=== PATIENT | female | born 1960 | race Caucasian/White ===

== ENCOUNTER 2023-01-07 00:39 | Day surgery (SDC) | payer BC, SELFPAY ==
[2023-01-03 12:40] VITALS: BMI 24.8
--- NOTE | 2023-01-06 13:18 | PM.HPGS ---
History of Present Illness History of Present Illness Consent: Risks, benefits, and alternatives have been discussed and questions answered. Patient agrees to proceed with procedure. Chief complaint: hx colon polyps Narrative: Jessica Lopez is a 62 year old female Referred for colon cancer screening. Her mother had colon cancer. She had a polyp removed about 6 years ago. Review of Systems Review of Systems: All systems reviewed & are unremarkable except as noted in HPI and below PMFSH Past Medical History Medical History Benign essential HTN CAD (coronary artery disease) Emphysema lung Hyperlipidemia MDD (major depressive disorder), recurrent episode, moderate MVP (mitral valve prolapse) Overactive bladder SCC (squamous cell carcinoma) L knee with excision Tobacco abuse Surgical History Surgical History H/O colonoscopy with polypectomy 2011, repeat 5 years, not done History of bronchoscopy Family History Family History Father Alcohol abuse Mother Colon cancer Depression Sibling Alcohol abuse Asthma Diabetes mellitus Depression Social History Social History Social History: Smoking packs per day: 1 Smoking cigarettes per day: 20.0 Years smoked: 50 Smoking pack-years: 50.00 Smoking status: Current every day smoker Tobacco type: cigarettes Second hand tobacco smoke exposure: No Alcohol intake: current Substance use: former Substance use type: prescription drug Lack of Transportation: No Lack of Food: Never True Current Housing: I Have Housing Concerned About Future Housing: No Difficulty Paying Gas/Electric Bills: No Difficulty Paying for Meds: No Currently Unemployed: No Education: Decline to Answer Difficulty w/ Childcare or Family Care: No Living arrangements: with family Occupation/Education: occupation Gender identity (if verbalized by the patient): Female Sexual Orientation (if Verbalized by the Patient): Straight or Heterosexual Spiritual care concerns: No Meds Home Medications and Allergies Home Medications Medication Instructions Recorded Confirmed Type atorvastatin 80 mg tablet 80 mg PO DAILY 05/28/22 01/03/23 History bupropion HCl 150 mg 24 hr tablet, 150 mg PO QAM 05/28/22 01/03/23 History extended release ramipril 2.5 mg capsule 2.5 mg PO DAILY 05/28/22 01/03/23 History sertraline 100 mg tablet 200 mg PO DAILY 05/28/22 01/03/23 History aspirin 81 mg tablet,delayed 81 mg PO DAILY 08/27/22 01/03/23 History release buspirone 15 mg tablet 30 mg PO BID 08/27/22 01/03/23 History albuterol sulfate 90 mcg/actuation 1 inh inhalation Q4H PRN shortness 12/07/22 01/03/23 Rx aerosol inhaler of breath or wheezing #6.7 grams cyanocobalamin (vitamin B-12) 1,000 mcg PO DAILY 01/03/23 01/03/23 History 1,000 mcg tablet Allergies Allergy/AdvReac Type Severity Reaction Status Date / Time alprazolam [From Xanax] Allergy Severe Other Verified 01/07/23 07:37 cefepime Allergy Severe Rash Verified 01/07/23 07:37 Exam Resp: Auscultation: clear to auscultation bilaterally Cardio: Rate: regular rate Rhythm: regular rhythm GI: GI Palp: Yes Soft to palpation and No Tenderness to palpation present (GI) Assessment and Plan Assessment and plan (1) Colon cancer screening: Code(s): Z12.11 - Encounter for screening for malignant neoplasm of colon Status: Acute Assessment and Plan: Colonoscopy with possible biopsy or polypectomy or cautery or injection of substances.
[2023-01-07 07:38] VITALS: BP 121/72; PULSE 78; RESP 18; TEMP 36.5; O2SAT 99
[2023-01-07] MEDS: LACTATED RINGERS 1,000 ML 150 ML IV CONT (07:52)
--- NOTE | 2023-01-07 08:22 | WPDANESEPPF ---
Anes - Initial Pre Proc Eval Procedure: Operation Date: 01/07/23 08:30 Proposed Procedures p Colonoscopy - Steve Coon MD Date/Time: 01/07/23 08:22 Surgeon: Steve Coon MD Pre Op Diagnosis: hx colon polyps Patient Data Age: 62 Gender: F Height: 1.71 m Weight: 69.5 kg Last Vital Signs Temp 97.7 F 01/07/23 07:38 Pulse 78 01/07/23 07:38 Resp 18 01/07/23 07:38 BP 121/72 01/07/23 07:38 Pulse Ox 99 01/07/23 07:38 O2 Del Method Room Air 01/07/23 07:38 Allergies Allergy/AdvReac Type Severity Reaction Status Date / Time alprazolam [From Xanax] Allergy Severe Other Verified 01/07/23 07:37 cefepime Allergy Severe Rash Verified 01/07/23 07:37 Home Medications Medication Instructions Recorded Confirmed Type atorvastatin 80 mg tablet 80 mg PO DAILY 05/28/22 01/03/23 History bupropion HCl 150 mg 24 hr tablet, 150 mg PO QAM 05/28/22 01/03/23 History extended release ramipril 2.5 mg capsule 2.5 mg PO DAILY 05/28/22 01/03/23 History sertraline 100 mg tablet 200 mg PO DAILY 05/28/22 01/03/23 History aspirin 81 mg tablet,delayed 81 mg PO DAILY 08/27/22 01/03/23 History release buspirone 15 mg tablet 30 mg PO BID 08/27/22 01/03/23 History albuterol sulfate 90 mcg/actuation 1 inh inhalation Q4H PRN shortness 12/07/22 01/03/23 Rx aerosol inhaler of breath or wheezing #6.7 grams cyanocobalamin (vitamin B-12) 1,000 mcg PO DAILY 01/03/23 01/03/23 History 1,000 mcg tablet Patient hx anesthesia problems: none Family hx anesthesia problems: none Results Review: All pre-operative results and documents have been reviewed as part of the pre-operative evaluation. [facility] Past Medical History Medical History Benign essential HTN CAD (coronary artery disease) Emphysema lung Hyperlipidemia MDD (major depressive disorder), recurrent episode, moderate MVP (mitral valve prolapse) Overactive bladder SCC (squamous cell carcinoma) L knee with excision Tobacco abuse Surgical History Surgical History H/O colonoscopy with polypectomy 2011, repeat 5 years, not done History of bronchoscopy Family History Family History Father Alcohol abuse Mother Colon cancer Depression Sibling Alcohol abuse Asthma Diabetes mellitus Depression Social History Social History Social History: Smoking packs per day: 1 Smoking cigarettes per day: 20.0 Years smoked: 50 Smoking pack-years: 50.00 Smoking status: Current every day smoker Tobacco type: cigarettes Second hand tobacco smoke exposure: No Alcohol intake: current Substance use: former Substance use type: prescription drug Lack of Transportation: No Lack of Food: Never True Current Housing: I Have Housing Concerned About Future Housing: No Difficulty Paying Gas/Electric Bills: No Difficulty Paying for Meds: No Currently Unemployed: No Education: Decline to Answer Difficulty w/ Childcare or Family Care: No Living arrangements: with family Occupation/Education: occupation Gender identity (if verbalized by the patient): Female Sexual Orientation (if Verbalized by the Patient): Straight or Heterosexual Spiritual care concerns: No Anes - Eval Final PreProcedure Day of Procedure 01/07/23 08:22 Patient weight: normal Heart: regular rate and rhythm Lungs: clear to auscultation Airway: Mallampati scale class II Neurological: alert and oriented Last oral intake: >/= 8 hours ASA classification: III Emergent: no Anesthetic plan: proceed Anesthesia type and monitoring: general GIVS and standard monitoring Results Review: All pre-operative results and documents have been reviewed as part of the pre-operative evaluation. Informed Consent: The patient's anesthet
[2023-01-07] MEDS: SIMETHICONE ORAL SUSPENSION 20 MG/0.3 ML 30 ML BOTTLE 0.6 ML IRRIGATION (08:53)
[2023-01-07 09:01] VITALS: BP 82/45; PULSE 62; RESP 19; O2SAT 98
[2023-01-07 09:11] VITALS: BP 78/42; PULSE 66; RESP 18; O2SAT 98
[2023-01-07 09:21] VITALS: BP 113/60; PULSE 56; RESP 17; O2SAT 98
== END 2023-01-07 09:30 | disposition home or self-care (01) ==
PROVIDERS: PCP Family Medicine; Visit Provider Internal Medicine Gastroenterology
PROC: 0DJD8ZZ Inspection of Lower Intestinal Tract, Via Natural or Artificial Opening Endoscopic (ICD-10-PCS; CPT 45378; principal; 2023-01-07 08:30)
DX: Z12.11 Encounter for screening for malignant neoplasm of colon (principal); D12.5 Benign neoplasm of sigmoid colon; K63.5 Polyp of colon; K62.1 Rectal polyp; Z80.0 Family history of malignant neoplasm of digestive organs; I10 Essential (primary) hypertension; I25.10 Atherosclerotic heart disease of native coronary artery without angina pectoris; E78.5 Hyperlipidemia, unspecified; F33.1 Major depressive disorder, recurrent, moderate; I34.1 Nonrheumatic mitral (valve) prolapse; Z79.82 Long term (current) use of aspirin; Z79.51 Long term (current) use of inhaled steroids; F17.210 Nicotine dependence, cigarettes, uncomplicated
CPT/HCPCS: 45380; 88305; J2704; J7120

== ENCOUNTER 2023-10-12 15:10 | Outpatient (CLI) | payer BC, SELFPAY ==
--- NOTE | ~2023-10-12 | MR_ITS ---
EXAMINATION: MR brain/brain stem wo con DATE: 10/12/2023 16:17 INDICATION: R41.89 - Other symptoms and signs involving cognitive fun... TECHNIQUE: Magnetic resonance imaging (MRI) of the brain and brainstem was performed without intraven ous contrast. Sequences included sagittal and axial T1-weighted SE, axial diffusion-weighted FS EPI A SSET, axial T2*-weighted GRE, axial T2-weighted FLAIR Propeller, and axial T2-weighted Propeller. Ihsan arent diffusion coefficient (ADC) maps were created. COMPARISON: None. FINDINGS: No abnormal restricted diffusion to suggest acute ischemic infarct. No MRI evidence of hemorrhage or extra-axial collection. No suspicious foci of susceptibility to suggest prior intraparenchymal hemorr juana. Scattered foci of white matter hyperintensity, likely representing mild small vessel ischemic d isease. Mild generalized parenchymal volume loss. The basilar cisterns are patent. Flow voids are pre served. Ethmoid mucosal thickening. Right mastoid fluid. The remaining aerated spaces are clear. Glob es and orbital contents are within normal limits. IMPRESSION: Mild atrophy and chronic white matter change. Otherwise unremarkable MR brain findings. Reviewed, dictated and finalized at location K. IMPRESSION: Mild atrophy and chronic white matter change. Otherwise unremarkable MR brain f indings.
== END 2023-10-12 15:11 ==
LOC: GOSHIMG 15:11
PROVIDERS: PCP Nurse Practitioner Adult Health; Visit Provider Nurse Practitioner Adult Health
DX: R41.89 Other symptoms and signs involving cognitive functions and awareness (principal)
CPT/HCPCS: 70551

== ENCOUNTER 2024-02-29 15:45 | Outpatient (CLI) | payer BC, SELFPAY ==
--- NOTE | ~2024-02-29 | CT_ITS ---
EXAMINATION:CT lung screening DATE: 02/29/2024 16:02 INDICATION: Personal history of nicotine dependence. Current smoker with 40 pack year history. TECHNIQUE: Computed tomography (CT) of the chest was performed without intravenous contrast. Automate d exposure control and iterative reconstruction technique were employed. The dose-length product (DLP ) was 56.72 mGy-cm. COMPARISON: Chest CT 08/27/2014 FINDINGS: There is mild scarring at the lung apices. There is mild emphysema. There is mild atelectas is bilaterally. A calcified right lung nodule and calcified right hilar lymph nodes are consistent wi th old granulomatous disease. No pleural effusion. The heart size is normal. There are coronary arter y calcifications. No pericardial effusion. Calcifications in the spleen are consistent with old granu lomatous disease. There is moderate thoracic spondylosis. IMPRESSION: 1. Lung-RADS category 2: Benign appearance or behavior. Continue annual screening with noncontrast lo w-dose chest CT in 12 months. Reviewed, dictated and finalized at location A. IT DRESSER IMPRESSION: 1. Lung-RADS category 2: Benign appearance or behavior. Continue annual screeni ng with noncontrast low-dose chest CT in 12 months.
== END 2024-02-29 15:46 | disposition home or self-care (01) ==
LOC: MICIMG 15:46
PROVIDERS: PCP Nurse Practitioner Adult Health; Visit Provider Nurse Practitioner Adult Health
DX: Z12.2 Encounter for screening for malignant neoplasm of respiratory organs (principal); Z87.891 Personal history of nicotine dependence
CPT/HCPCS: 71271

== ENCOUNTER 2024-11-29 12:17 | Outpatient (CLI) | payer OTHER, SELFPAY ==
--- NOTE | ~2024-11-29 | MM_ITS ---
EXAMINATION: MM screening rafaela BI w poncho HISTORY: Screening TECHNIQUE: Craniocaudal and mediolateral oblique 3-D tomosynthesis images were obtained and synthetic 2-D images were generated. CAD analysis was submitted and interpreted. COMPARISON: None provided BREAST PARENCHYMAL COMPOSITION: There are scattered areas of fibroglandular density. FINDINGS: There is no evidence of suspicious mass, calcification, or architectural distortion to suggest malignancy in either breast. IMPRESSION: 1. No mammographic evidence of malignancy. 2. Recommend routine screening mammography in one year. BI-RADS Category 1: Negative Reviewed, dictated and finalized at location B.
--- OUTSIDE RECORDS SUMMARY | 2024-11-29 05:15 | XMS_ITS ---
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 Orally Once a day lamoTRIgine 25 MG Tablet 1 tablet Orally once a day Medication List reviewed and reconciled with the patientTaking Vitamin B 12 100 MCG Lozenge as directed Orally Taking Ramipril 2.5 MG Capsule 1 capsule Orally Once a day Taking Aspirin 81 81 MG Tablet Delayed Release 1 tablet Orally Once a day Taking Atorvastatin Calcium 80 MG Tablet 1 tablet Orally Once a day Taking Metoprolol Succinate ER 25 MG Tablet Extended Release 24 Hour TAKE 1 TABLET BY MOUTH ONCE DAILY Oral Taking Ubrelvy 100 MG Tablet Oral Taking Sertraline HCl 100 MG Tablet 2 tablet Orally Once a day Taking busPIRone HCl 30 MG Tablet 1 tablet once a day for 7 days, 0.5 tablet once a day for 7 days Orally , stop date 02/12/2025Taking traZODone HCl 100 MG Tablet 0.5 to 1 tablet at bedtime Orally Once a day As neededTaking Rexulti 1 mg Tablet 1 tablet Orally Once a day Taking lamoTRIgine 25 MG Tablet 1 tablet Orally once a day Medication List reviewed and reconciled with the patient * Allergies: C efdiniryesAllergies Verified. Objective: * Vitals: B P:109/65mm Hg, HR:55/min, Wt:163lbs, Wt-k.94 kg, Ht: 67.99 in, Ht-cm: 172.69 cm, BMI:24.79Index, Body Surface Area: 1.88. * Examination: P sychiatry: Appearance: w ell-groomed, well-nourished,. Affect / mood: a ppropriate, full range. Attention: g ood. Attitude: c ooperative. Suicidal ideation: n one. Memory status: n o impairment noted. Degree of awareness of surroundings: w ithin normal limits.? Delusions: n o. Hallucinations: n o. Insight: g ood. Intellectual functioning: n o impairment noted. Judgement: g ood. Orientation: a wake, alert and oriented x 3. Perceptual disorders: n o perceptual disorder noted. Psychomotor activity: w ithin normal range. Speech / language: a ppropriate pitch/modulation, clear and coherent, normal rate, volume, and articulation (RVR), proper grammar used. Thought content: a ppropriate. Thought process: i ntact. G eneral Examination: M ental Status Examination The patient presented with a clear and coherent thought process, demonstrating the ability to engage in goal-directed conversation about complex topics such as medication changes, insurance issues, and future work plans. Their speech was normal in rate and volume, allowing for effective communication throughout the session. The patient expressed experiencing anxiety when faced with certain tasks, indicating a mood that fluctuates between better days and periods of increased stress. Cognitively, the patient appeared alert and oriented, capable of discussing detailed medical information and future planning, suggesting intact attention and memory. Laboratory, Imaging, and Diagnostic Test Results The patient reports that their aortic aneurysm is stable, as determined by a recent cardiology evaluation. A referral to vascular surgery for consultation has been made for further monitoring of this condition. Assessment: * Assessment: 1. 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 N icotine use - Z72.0 ? 3 . G AD (generalized anxiety disorder) - F41.1 4 . I nsomnia due to other mental disorder - F51.05 differential dx- ADHD Plan: * Treatment: 2. G AD (generalized anxiety disorder) Continue Sertraline HCl Tablet, 100 MG, 2 tablet, Orally, Once a day, 90 days, 180 Tablet, Refills 1; S top busPIRone HCl Tablet, 30 MG, 1 tablet once a day for 7 days, 0.5 tablet once a day for 7 days, Orally, 14 days, 10.5 tablet. Notes: buspirone 30mg bid, sertraline 150mg daily 3. I nsomnia due to other mental disorder Continue traZODone HCl Tablet, 100 MG, 0.5 to 1 tablet at bedtime, Orally, Once a day As needed, 30 days, 30 Tablet, Refills 1. 4. O thers Notes: She would like to return to work mid December, 20 hours a week. 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 Jessica Lopez, a patient with a history of anxiety and mood issues, presents for medication management and discussion of returning to work. Anxiety and Mood Disorder Assessment: Patient reports having more better days than bad days on current medication regimen. 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 Patient is currently on Rexulti 1 mg, which has been beneficial. Lamotrigine titration is in progress, with the patient about to start the 50 mg dose. 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 Plan: - Continue Rexulti - Will attempt to send a 90-day supply before insurance changes to Medicare - Discussed potential switch to Abilify (aripiprazole) as an alternative if needed due to cost concerns - Continue Lamotrigine titration - Patient to start 50 mg dose - Discuss return to work plan - Patient considering mid-December return in a reduced capacity (<=20 hours/week) - Follow up to reassess medication regimen and work status the note is transcribed using speech recognition software. It is a reflection of a visit with the patient. It might have some inaccuracy, including medication names and transcribing errors, though efforts have been made to correct them. * Procedure Codes: 9 6127 BEHAV ASSMT W/SCORE & DOCD/STAND INSTRUMENT * Preventive Medicine: Screenings: D epression screening Have you had a recent depression screening? Y es * Follow Up: 2 Weeks (Reason: f/u depression) Billing Information: * Visit Code: 56946 OFFICE OUTPATIENT VISIT 25 MINUTES DETAILED HISTORY AND EXAM/MODERATE MEDICAL DECISION MAKING. * Procedure Codes: 33066 BEHAV ASSMT W/SCORE & DOCD/STAND INSTRUMENT. * Sign off status: Completed true * Provider: KHUSHBU JI Date: 0 11/29/2024 Generated for Laura swanson/Carlitos/Vimal on: 11/29/2024 02:04 PM CDT
--- OUTSIDE RECORDS SUMMARY | 2024-11-29 14:04 | XMS_ITS | Encounter Summary ---
Author Organization [facility] Address [address] [place] [address] Phone Care Team Providers Care Drive Tester Name Role Phone Bk Pinto MD Unavailable [phone] Fanta Arango RN Unavailable Unavailable Saira Tirado RN Unavailable Unavailab Jillian Ahuja NP Primary Care Provider [phone] Encounter Details Date Type Department Care Team (Late st Contact Info) Description 11/28/2024 Telephone [facility] Medicine Surgery [address] [facility] Floor 1 [place] [address] Romeo Enriquez MD [address] [facility] [place] [address]22 [place] [address] Social History Tobacco Use Types Packs/Day Years Used Date Smoking Tobacco: Every Day Cigarettes Smokeless Tobacco: Never Personal Safety Answer Date Recorded Getting School Help Needed Denies 04/07 Comments Unknown Sex and Gender Information Value Date Recorded Sex Assigned at Not on file 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 Enriquez 2x's as was disconnected. Sent SocialVest message to schedule documented in this encounter Plan of Treatment Not on file documented as of this encounter Visit Diagnoses Not on filedocumented in this encounter Additional Health Concerns Infection Onset Date Last Indicated Resolved Time MDR gram neg/ESBL Comment:Germ watcher auto flagging 09/06/2014 09/06/2014 documented as of this encounter Care Teams Drive Tester Relationship Specialty Start Date End Date Jillian Campos NP [address] [place] [address] PCP - General Nurse Practitioner 05/22/24 Bk Pinto MD Referring Physician Cardiology 12/30/21 Fanta Arango, hook up driver Failure Coordinator Transplant 04/20/23 Saira Tirado, hook up driver Failure Coordinator Cardiology 02/27/24 documented as of this encounter
--- OUTSIDE RECORDS SUMMARY | 2024-11-29 14:04 | XMS_ITS | Encounter Summary ---
Author Organization [facility] Address [address] [place] [address] Care Team Providers Care Police Crime Scene Technician Name Role Phone Bk Pinto MD Unavailable [phone] Fanta Arango RN Unavailable Unavailable Saira Tirado RN Unavailable Unavailab Jillian Ahuja NP Primary Care Provider [phone] Encounter Details Date Type Department Care Team (Late st Contact Info) Description 10/31/2024 Telephone [facility] Transplant Heart [address] [facility] [phone] [place] [address] Ezra Moyer Social History Tobacco Use Types Packs/Day Years Used Date Smoking Tobacco: Every Day Cigarettes Smokeless Tobacco: Never Personal Safety Answer Date Recorded Getting School Help Needed Denies 04/07 Comments Unknown Sex and Gender Information Value Date Recorded Sex Assigned at Not on file 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 She states that her dtr encouraged her to call Dr. Pinto in case the tightness she is feeling in her feet/ankles is a heart failure sign. Pt denies SOB, is able to lie flat to sleep. She does endorse high sodium diet recently. Counseled on low sodium diet, elevating her feet/legs whenever possible, compression stockings, andencouraged her to call the prescriber of her new medicine to discuss her s/s as potential side effects. Asked her to reach out if she is feeling SOB or has increased and visible swelling, and advisedher to keep a daily log of am weights. She will see us in clinic 11/27. Patient verbalized understanding and agreeable to plan. * Telephone Encounter - Ezra Moyer - 10/31/2024 9:13 AM CDT Received call from the patient needing to speak with nurse coordinator regarding: Patient stated her feet and ankles have felt tight since she started the Rexulti on 10/11. She stated there is no visual edema but feels like there is. Denied any SOB or chest pain. Would like a call back to discuss. Patient needs a return call from the nurse coordinator. Please call her back at [phone] documented in this encounter Plan of Treatment Not on file documented as of this encounter Visit Diagnoses Not on filedocumented in this encounter Additional Health Concerns Infection Onset Date Last Indicated Resolved Time MDR gram neg/ESBL Comment:Germ watcher auto flagging 09/06/2014 09/06/2014 documented as of this encounter Care Teams Police Crime Scene Technician Relationship Specialty Start Date End Date Jillian Campos NP [address] [place] [id number] PCP - General Nurse Practitioner 05/22/24 Bk Pinto MD Referring Physician Cardiology 12/30/21 Fanta Arango, police reserves commander Failure Coordinator Transplant 04/20/23 Saira Tirado police reserves commander Failure Coordinator Cardiology 02/27/24 documented as of this encounter
--- OUTSIDE RECORDS SUMMARY | 2024-11-29 14:04 | XMS_ITS | Encounter Summary ---
Author Organization [facility] Healthcare Address [address] [place] [address] Care Team Providers Care Biopharmaceutical Rep Name Role Phone Bk Pinto MD Unavailable [phone] Fanta Arango RN Unavailable Unavailable Saira Tirado RN Unavailable Unavailab Jillian Ahuja NP Primary Care Provider [phone] Encounter Details Date Type Department Care Team (Late st Contact Info) Description 11/27/2024 Results Follow-Up 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 Not on file Not on file Not on file documented as of this encounter Plan of Treatment Not on file documented as of this encounter Visit Diagnoses Not on filedocumented in this encounter Additional Health Concerns Infection Onset Date Last Indicated Resolved Time MDR gram neg/ESBL Comment:Germ watcher auto flagging 09/06/2014 09/06/2014 documented as of this encounter Care Teams Biopharmaceutical Rep Relationship Specialty Start Date End Date Jillian Campos NP [address] [place] [address] PCP - General Nurse Practitioner 05/22/24 Bk Pinto MD Referring Physician Cardiology 12/30/21 Fanta Arango, sas clinical programmer Failure Coordinator Transplant 04/20/23 Saira Tirado, sas clinical programmer Failure Coordinator Cardiology 02/27/24 documented as of this encounter
--- OUTSIDE RECORDS SUMMARY | 2024-11-29 14:05 | XMS_ITS | Encounter Summary ---
Author Organization [facility] Address [address] [place] [address] Phone Care Team Providers Care Rehabilitation Case Coordinator Name Role Phone Tiarra Mckoy MD Primary Care Provider [phone] Jillian Campos NP Primary Care Provider [phone] Bk Pinto MD Unavailable [phone] Fanta Arango RN Unavailable Unavailable Carmelita Dawkins RN Unavailable [phone] Fanta Arango RN Unavailable Unavailable Unknown, Notinfile Primary Care Provider Unavail able Fanta Arango RN Unavailable Unavailable Saira Tirado RN Unavailable Unavailab Jillian Ahuja NP Primary Care Provider [phone] Encounter Details Date Type Department Care Team (Late st Contact Info) Description 05/11/2018 Telephone 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 05/12/2022 05/12/2022 05/22/2022 3:05 AM ART DISPLAY MAKER documented as of this encounter Care Teams Rehabilitation Case Coordinator Relationship Specialty Start Date End Date Tiarra Mckoy MD [address] [place] [address] [place] [address] PCP - General Family Medicine 05/11/18 04/01/19 Jillian Campos NP [address] [place] [address] [place] [address] PCP - General Nurse Practitioner 04/02/19 04/11/23 Unknown, Notinfile PCP - General 04/12/23 05/21/24 Jillian Campos NP [address] [place] [address] PCP - General Nurse Practitioner 05/22/24 Bk Pinto MD [address] [place] [address] [place] [address] Referring Physician Cardiology 12/30/21 Fanta Arango, rehabilitation attendantProperty Insurance Agent Cardiology 12/30/21 04/20/23 Carmelita Dawkins, RN [address] [address] Property Insurance Agent Cardiology 12/30/21 Fanta Arango, customer services coordinator Failure Coordinator 04/07/23 04/20/23 Fanta Arango, customer services coordinator Failure Coordinator Transplant 04/20/23 Saira Tirado RN Heart Failure Coordinator Cardiology 02/27/24 documented as of this encounter
--- OUTSIDE RECORDS SUMMARY | 2024-11-29 14:05 | XMS_ITS | Clinical Summary ---
Author Organization [facility] Address [address] [place] [address] Care Team Providers Care Wool Cleaner Name Role Phone Bk Pinto MD Unavailable [phone] Fanta Arango RN Unavailable Unavailable Saira Tirado RN Unavailable Unavailab Jillian Ahuja MANAGER PROFESSIONAL DEVELOPMENT Primary Care Provider [phone] Allergies Active Allergy Reactions Criticality Noted Date Comments Benzodiazepines Unknown 10/01/2014 Cefepime Rash Medium 06/16/2018 Medications aspirin 81 mg tablet daily. Active sertraline (ZOLOFT) 100 mg tabletIndicatio ns:pt. taking 200mg daily 2 (two) times a day 8 Active atorvastatin (LIPITOR) 80 mg tablet Take 1 tablet (80 mg total) by mouth daily. 30 tablet 11 9 11/12/19 30 Active nitroglycerin (NITROSTAT) 0.[address] 1 tablet (0.4 mg total) under the tongue every 5 (five) minutes as needed for chest pain repeat q 5 mins.x3 tabs-then ER-If in pain 25 tablet 2 3 Active ramipriL (ALTACE) 2.5 mg capsule Take 1 capsule (2.5 mg total) by mouth daily 4 Active metoprolol XL (TOPROL-XL) 25 mg extended release tablet Take 0.5 tablets (12.5 mg total) by mouth daily 4 Active busPIRone (BUSPAR) 30 mg tablet Take 1 tablet (30 mg total) by mouth 2 (two) times a day 4 Active multivit,iron,m inerals/lutein (CENTRUM SILVER ULTRA WOMEN'S ORAL) Take by mouth Active Ubrelvy 100 mg tablet 5 Active cyanocobalamin (Vitamin B-12) 1,000 mcg tabletIndicatio ns:Prevention of Vitamin B12 Deficiency Take 1 tablet (1,000 mcg total) by mouth daily Active lamoTRIgine (LaMICtal) 25 mg tablet daily 5 Active Rexulti 1 mg tablet 5 Active traZODone (DESYREL) 100 mg tablet TAKE 1/2 TO 1 (ONE-HALF TO ONE) TABLET BY MOUTH ONCE DAILY AT BEDTIME NEEDED 5 Active traZODone (DESYREL) 50 mg tablet TAKE 1/2 TO 1 (ONE-HALF TO ONE) TABLET BY MOUTH ONCE DAILY AT BEDTIME 5 11/28/19 25 Discontinu ed(Therapy completed) Rexulti 0.5 mg tablet daily 5 11/28/19 25 Discontinu ed(Therapy completed) Active Problems Problem Noted Date Diagnosed Date Snoring 10/19/2024 Assessment & Plan (10/19/2024 9:32 AM CDT): The patient presents with snoring, daytime hypersomnia and recent diagnosis of mild dementia. I have recommended proceeding with a nocturnal polysomnogram with a split night protocol if necessary and no MSLT. She will follow up here in 4 months. Mitral valve prolapse 04/02/2019 Other hyperlipidemia 05/16/2018 Essential hypertension 05/16/2018 Coronary arteriosclerosis 05/03/2018 Anxiety B12 deficiency Encounters Date Type Department Care Team Description 11/28/2024 Telephone [facility] Medicine Surgery [address] [facility] Floor 1 [place] [address] Romeo Enriquez MD 11/27/2024 2:40 PM CDT Office Visit [facility] Medicine Cardiology [address] [facility] 8th [place] [address] [place] [address] Bk Pinto MD Essential hypertension (Primary Dx) 11/27/2024 Results Follow-Up [facility] Transplant Heart [address] [facility] [address] [place] [address] Saira Tirado, MALDONADO CTA Abdomen Pelvis 11/23/2024 Telephone [facility] Cardiology [address] [facility] 8th [place] [address] [place] [address] Bk Pinto MD 11/20/2024 9:55 AM CDT - 11/20/2024 11:59 PM CDT Hospital Encounter [facility] [address] [place] [address] Bk Pinto MD Abdominal aortic aneurysm (AAA) without rupture, unspecified part Discharge Disposition: Discharge to home or self care 11/07/2024 Telephone [facility] [address] [facility] 6th [place] [address] [place] [id number] Gaetano Weaver MD PhD 11/05/2024 1:41 PM CDT - 11/05/2024 11:59 PM CDT Hospital Encounter [facility] [address] [place] [address] Discharge Disposition: Discharge to home or self care 11/05/2024 1:39 PM CDT - 11/05/2024 11:59 PM CDT Hospital Encounter [facility] [address] [place] [address] Mild dementia without behavioral disturbance, psychotic disturbance, mood disturbance, or anxiety, unspecified dementia type (HCC) Discharge Disposition: Discharge to home or self care 11/01/2024 Telephone [facility] [address] [facility] First Floor [address] [place] [address] Georgina Richardson, A Billing Question 10/31/2024 Telephone [facility] Transplant Heart [address] [facility] [phone] [place] [address] Ezra Moyer 10/25/2024 Telephone [facility] [address] [facility] First Floor [address] [place] [phone] Georgina Richardson RMA Re:Forms 10/23/[address] [facility] Pulmonary [place] [address] [facility] [address] [place] [phone] Anuja Hooks NP Snoring (Primary Dx); Hypersomnia 10/23/2024 Telephone [facility] [address] [place] [address] Lolly Bella [facility] In lab sleep study denied by insurance 10/19/2024 9:00 AM CDT Office Visit [facility] Pulmonology [address] [facility] [address] [place] [phone] Angelo Vázquez MD Mild dementia without behavioral disturbance, psychotic disturbance, mood disturbance, or anxiety, unspecified dementia type (HCC); Snoring 10/09/2024 Telephone [facility] [facility] [address] [place] [address] Georgina Richardson RMA Forms to be Completed 10/05/2024 11:45 AM CDT - 10/05/2024 11:59 PM CDT Hospital Encounter [facility] [address] [place] [address] Discharge Disposition: Discharge to home or self care 10/03/2024 3:00 PM CDT Office Visit [facility] [facility] Floor [address] [place] [address] Gaetano Weaver MD PhD Mild dementia without behavioral disturbance, psychotic disturbance, mood disturbance, or anxiety, unspecified dementia type (HCC) (Primary Dx); Other symptoms and signs involving cognitive functions and awareness; Snoring from Last 3 Months Surgical History Surgery Date Site/Laterality Comments SKIN CANCER DESTRUCTION Medical History Medical History Date Comments CAD (coronary artery disease) AAA (abdominal aortic aneurysm) Hypertension Anxiety Depression B12 deficiency Family History Medical History Relation Name Comments No Known Problems Mother Lung disease Other Family history of lung disease - (Added by TW Conv) Alzheimer's disease Neg Hx Depression Neg Hx Relation Name Status Comments Mother Other Social History Tobacco Use Types Packs/Day Years Used Date Smoking Tobacco: Every Day Cigarettes Smokeless Tobacco: Never Tobacco Cessation:Ready to Q uit: Not Asked; Counseling Given: Not Answered Personal Safety Answer Date Recorded Getting School Help Needed Denies 04/07 Comments Unknown Sex and Gender Information Value Date Recorded Sex Assigned at Not on file Legal Sex Female 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 Gender Identity Not on file Sexual Orientation Not on file 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 Not on file Not on file Not on file Obstetrics History Last Filed Vital Signs Vital Sign Reading Time Taken Comments Blood Pressure 122/79 11/27/2024 2:31 PM CDT Pulse 60 11/27/2024 2:31 PM CDT Temperature 36.1 C (97 F) 10/19/2024 9:09 AM CDT Respiratory Rate 18 10/19/2024 9:09 AM CDT Oxygen Saturation 97% 11/27/2024 2:31 PM CDT Inhaled Oxygen Concentration - - Weight 73.9 kg (163 lb) 11/27/2024 2:31 PM CDT Height 170.2 cm (5' 7) 11/27/2024 2:31 PM CDT Body Mass Index 25.53 11/27/2024 2:31 PM CDT Plan of Treatment Health Maintenance Due Date Last Done Comments Breast Cancer Screening-Mammogram 1960 Cervical Cancer Screening 1959 Colon Cancer Screening-Colonoscopy 1960 Depression Screening 1959 Hepatitis C Screening 1959 Hepatitis B Screening 12/20/1977 Regular Well Visit/Exam 18-64 12/20/1977 Pneumococcal vaccine <65 (1 of 2 - PCV) 12/20/1978 Zoster Vaccine (1 of 2) 12/20/2009 DTaP/Tdap/Td Vaccine (3 - Td or Tdap) 05/07/2024 05/07/2014, 01/03/2012 Influenza Vaccine (#1) 2024 9, 02/20/2018, 01/11/2017, Additional history exists Procedures Procedure Name Priority Date/Time Associated Diagnosis Comments CTA ABDOMEN PELVIS W WO CONTRAST Schedule Routine, Read Routine (OP Routine) 11/20/2024 10:41 AM CDT Abdominal aortic aneurysm (AAA) without rupture, unspecified part PET/CT AMYLOID BRAIN Schedule Routine, Read Routine (OP Routine) 11/05/2024 4:07 PM CDT Mild dementia without behavioral disturbance, psychotic disturbance, mood disturbance, or anxiety, unspecified dementia type (HCC) NEURO MR OUTSIDE REFERENCE Routine 10/05/2024 11:45 AM CDT from Last 3 Months Results * CTA Abdomen Pelvis (11/20/2024 10:41 AM CDT) Anatomical Region Laterality Modality Body N/A Computed Tomogra phy 11/20/2024 2:41 PM CDT Impressions 11/20/2024 4:58 PM CDT 1. 46 mm x 45 mm infrarenal abdominal aortic aneurysm, which is slightly increased in size from 43 x 42 mm on 05/12/2022. 2. AAA volume: 148 cc. Dictated by: Al Houston MD The radiology attending physician has personally reviewed this study, and had reviewed and/or edited this written report and agrees with it. Electronically signed by: Gerardo Franco M.D. Narrative 11/20/2024 4:58 PM CDT EXAMINATION: CT ANGIOGRAPHY OF THE ABDOMEN AND PELVIS WITH AND WITHOUT CONTRAST HISTORY: Abdominal aortic aneurysm TECHNIQUE: CT angiography of the abdomen and pelvis was performed prior to and following uneventful intravenous administration of 69 ml Optiray-350 using the pre-endoluminal stent graft protocol. Vascular 3D images were generated on a dedicated workstation and also reviewed. COMPARISON: 05/12/2022 FINDINGS: VASCULAR FINDINGS: There is an an infrarenal abdominal aortic aneurysm. There are no signs of aneurysm instability. Celiac artery: No significant stenosis SMA: No significant stenosis ZAHRA: No significant stenosis Renal arteries: No significant stenosis Vascular measurements: Aortic diameter at proximal implantation site: 15 mm AP x 18 mm aqokn-ss-ibaw Aortic diameter 10mm inferior to proximal implantation site: 17 mm AP x 19 mm [id number]-pr-xmrd Aortic diameter 15mm inferior to proximal implantation site: 16 mm AP x 18 mm xbsiv-br-imev Maximum outer aneurysm diameter: 46 mm AP x 45 mm llblu-nv-rsmi. Aortic neck length: 20 mm Right common iliac diameter: 6-10 mm Left common iliac diameter: 7-8 mm Right external iliac diameter: 4-7 mm Left external iliac diameter: 4-7 mm Length from lower renal artery to right common iliac origin: 135 mm Length from lower renal artery to left common iliac origin: 134 mm Right length for sealing/lower renal to iliac bifurcation: 189 mm Left length for sealing/lower renal to iliac bifurcation: 178 mm AAA volume (lowest renal artery to aortic bifurcation): 148 cc NON-VASCULAR FINDINGS: Bibasilar atelectasis. No suspicious hepatic mass. Conventional hepatic arterial anatomy. Normal gallbladder. No intrahepatic or extra hepatic biliary ductal dilation. Calcified granulomas in the spleen. Normal pancreas. Unchanged subcentimeter bilateral adrenal adenomas. Kidneys enhance symmetrically without hydronephrosis. Bilateral renal cysts. Normal caliber small and large bowel without evidence of obstruction or bowel wall thickening. Normal appendix. Submucosal fat deposition in the ascending and proximal transverse colon likely represent sequela of prior inflammation. Decompressed urinary bladder. Uterus is present without suspicious adnexal mass. Calcified uterine fibroids. No ascites or organized fluid collection. No pneumoperitoneum. No intra-abdominal or pelvic lymphadenopathy. No suspicious osseous lesions. Procedure Note Gerardo Franco MD - 11/20/2024 EXAMINATION: CT ANGIOGRAPHY OF THE ABDOMEN AND PELVIS WITH AND WITHOUT CONTRAST HISTORY: Abdominal aortic aneurysm TECHNIQUE: CT angiography of the abdomen and pelvis was performed prior to and following uneventful intravenous administration of 69 ml Optiray-350 using the pre-endoluminal stent graft protocol. Vascular 3D images were generated on a dedicated workstation and also reviewed. COMPARISON: 05/12/2022 FINDINGS: VASCULAR FINDINGS: There is an an infrarenal abdominal aortic aneurysm. There are no signs of aneurysm instability. Celiac artery: No significant stenosis SMA: No significant stenosis ZAHRA: No significant stenosis Renal arteries: No significant stenosis Vascular measurements: Aortic diameter at proximal implantation site: 15 mm AP x 18 mm hyqct-di-fuai Aortic diameter 10mm inferior to proximal implantation site: 17 mm AP x 19 mm naost-kg-xytp Aortic diameter 15mm inferior to proximal implantation site: 16 mm AP x 18 mm rueti-jh-pqxk Maximum outer aneurysm diameter: 46 mm AP x 45 mm andbs-pt-sddl. Aortic neck length: 20 mm Right common iliac diameter: 6-10 mm Left common iliac diameter: 7-8 mm Right external iliac diameter: 4-7 mm Left external iliac diameter: 4-7 mm Length from lower renal artery to right common iliac origin: 135 mm Length from lower renal artery to left common iliac origin: 134 mm Right length for sealing/lower renal to iliac bifurcation: 189 mm Left length for sealing/lower renal to iliac bifurcation: 178 mm AAA volume (lowest renal artery to aortic bifurcation): 148 cc NON-VASCULAR FINDINGS: Bibasilar atelectasis. No suspicious hepatic mass. Conventional hepatic arterial anatomy. Normal gallbladder. No intrahepatic or extra hepatic biliary ductal dilation. Calcified granulomas in the spleen. Normal pancreas. Unchanged subcentimeter bilateral adrenal adenomas. Kidneys enhance symmetrically without hydronephrosis. Bilateral renal cysts. Normal caliber small and large bowel without evidence of obstruction or bowel wall thickening. Normal appendix. Submucosal fat deposition in the ascending and proximal transverse colon likely represent sequela of prior inflammation. Decompressed urinary bladder. Uterus is present without suspicious adnexal mass. Calcified uterine fibroids. No ascites or organized fluid collection. No pneumoperitoneum. No intra-abdominal or pelvic lymphadenopathy. No suspicious osseous lesions. IMPRESSION: 1. 46 mm x 45 mm infrarenal abdominal aortic aneurysm, which is slightly increased in size from 43 x 42 mm on 05/12/2022. 2. AAA volume: 148 cc. Dictated by: Al Houston MD The radiology attending physician has personally reviewed this study, and had reviewed and/or edited this written report and agrees with it. Electronically signed by: Gerardo Franco M.D. Bk Pinto MD IMAmie CT PROCEDURES Final Res ult * PET/CT Amyloid Brain (11/05/2024 4:07 PM CDT) Anatomical Region Laterality Modality Positron Emissio n Tomography (PET) 11/05/2024 4:38 PM CDT Impressions 11/05/2024 7:00 PM CDT 1. Negative amyloid-PET study, indicating no to sparse beta-amyloid neuritic plaques. 2. Centiloid value: -12.0 General comments on amyloid-PET and Centiloid scale-based interpretation: A negative amyloid-PET study indicates sparse to no neuritic plaques and is inconsistent with Alzheimer disease at the time of the study. A negative study reduces the likelihood that the patient's cognitive impairment is due to Alzheimer disease. A positive amyloid-PET study indicates moderate to frequent neuritic plaques which is the amount present in patients with Alzheimer disease. However, a positive amyloid-PET study does not establish the diagnosis of Alzheimer disease. Moderate to frequent neuritic plaques can also be present in patients with other neurological conditions as well as in older people with normal cognition. The CL scale compensates for differences between the different FDA-approved amyloid imaging agents. The scale is anchored at 0 and 100, which correspond to the average SUVr, respectively, for young, healthy controls and typical AD patients with mild-moderate plaques. Note that values below 0 and above 100 are possible on this scaling system. The scale is anchored at 0 and 100, which correspond to the average SUVr, respectively, for young, healthy controls and typical AD patients with mild-moderate plaques. Note that values below 0 and above 100 are possible on this scaling system (). Under 10 CL: Negative 10-30 CL: Intermediate range Over 30 CL: Positive Reference: Thi GAMBOA, Katty A, Marlene Castle R, et al. Centiloid Recommendations for Clinical Ksviyih-ko-Dts From the AMYPAD Consortium. Alzheimer's & Dementia: The Journal of the Alzheimer's Association. 2023;20(12):1276-3714. doi:10.1002/alz.1433 Dictated by: Ti Massey M.D. The radiology attending physician has personally reviewed this study, and had reviewed and/or edited this written report and agrees with it. Electronically signed by: Lucía Munoz M.D. Narrative 11/05/2024 7:00 PM CDT EXAMINATION: BRAIN AMYLOID-PET/CT IMAGING DATE OF STUDY: 11/05/2024 SCANNER: [facility] RADIOPHARMACEUTICAL: 11.2 mCi F-18 florbetapir i.v. HISTORY: 63-year-old with 3-4 years of memory loss, including difficulty managing medications. TECHNIQUE: At 59 minutes after injection of tracer, non-contrast CT images of the head were obtained for attenuation correction and for fusion with emission PET images to allow for anatomical localization of PET findings. Standard emission PET imaging of the brain was then performed. The study was interpreted on the [employer] workstation. COMPARISON CT/MRI: 10/12/2023 FINDINGS: There is a normal cortical-white matter contrast in the cerebellum. There is a normal cortical-white matter contrast throughout the cerebrum. There are no foci of increased cortical activity. Incidental CT findings: Mildly prominent ventricles. Procedure Note Lucía Munoz MD - 11/05/2024 EXAMINATION: BRAIN AMYLOID-PET/CT IMAGING DATE OF STUDY: 11/05/2024 SCANNER: [facility] RADIOPHARMACEUTICAL: 11.2 mCi F-18 florbetapir i.v. HISTORY: 63-year-old with 3-4 years of memory loss, including difficulty managing medications. TECHNIQUE: At 59 minutes after injection of tracer, non-contrast CT images of the head were obtained for attenuation correction and for fusion with emission PET images to allow for anatomical localization of PET findings. Standard emission PET imaging of the brain was then performed. The study was interpreted on the [employer] workstation. COMPARISON CT/MRI: 10/12/2023 FINDINGS: There is a normal cortical-white matter contrast in the cerebellum. There is a normal cortical-white matter contrast throughout the cerebrum. There are no foci of increased cortical activity. Incidental CT findings: Mildly prominent ventricles. IMPRESSION: 1. Negative amyloid-PET study, indicating no to sparse beta-amyloid neuritic plaques. 2. Centiloid value: -12.0 General comments on amyloid-PET and Centiloid scale-based interpretation: A negative amyloid-PET study indicates sparse to no neuritic plaques and is inconsistent with Alzheimer disease at the time of the study. A negative study reduces the likelihood that the patient's cognitive impairment is due to Alzheimer disease. A positive amyloid-PET study indicates moderate to frequent neuritic plaques which is the amount present in patients with Alzheimer disease. However, a positive amyloid-PET study does not establish the diagnosis of Alzheimer disease. Moderate to frequent neuritic plaques can also be present in patients with other neurological conditions as well as in older people with normal cognition. The CL scale compensates for differences between the different FDA-approved amyloid imaging agents. The scale is anchored at 0 and 100, which correspond to the average SUVr, respectively, for young, healthy controls and typical AD patients with mild-moderate plaques. Note that values below 0 and above 100 are possible on this scaling system. The scale is anchored at 0 and 100, which correspond to the average SUVr, respectively, for young, healthy controls and typical AD patients with mild-moderate plaques. Note that values below 0 and above 100 are possible on this scaling system (). Under 10 CL: Negative 10-30 CL: Intermediate range Over 30 CL: Positive Reference: Katty Villatoro, Marlene Hua, et al. Centiloid Recommendations for Clinical Tquvris-uc-Roh From the AMYPAD Consortium. Alzheimer's & Dementia: The Journal of the Alzheimer's Association. 2023;20(12):4149-6371. doi:10.1002/alz.1433 Dictated by: Ti Massey M.D. The radiology attending physician has personally reviewed this study, and had reviewed and/or edited this written report and agrees with it. Electronically signed by: Lucía Munoz M.D. us Gaetano Weaver MD PhD IMG PET PROCEDURES Final R esult * Neuro MR Outside Reference (10/05/2024 11:45 AM CDT) Impressions [facility] - 10/05/2024 11:45 AM CDT These images are for Reference purposes only and have not been reviewed by [facility] Radiology. There will be no report generated by a [facility] Radiologist. Narrative [facility] - 10/05/2024 11:45 AM CDT EXAMINATION: Images For Reference Purposes Only us Gaetano Weaver MD PhD IMG MRI PROCEDURES Final R esult [facility] from Last 3 Months Additional Health Concerns Infection Onset Date Last Indicated MDR gram neg/ESBL Comment:Germ watcher auto flagging 09/06/2014 09/06/2014 Insurance [facility] [employer] [place] Address: [address] [place] [address] [facility] [employer] [facility] [place] [employer] Address: [place] [address] MEDICARE [facility] [employer] [place] [employer] Address: [place] [address] Care Teams Wool Cleaner Relationship Specialty Start Date End Date Jillian Campos NP [address] [place] [id number] PCP - General Nurse Practitioner 05/22/24 Bk Pinto MD Referring Physician Cardiology 12/30/21 Fanta Arango, billet cutter Failure Coordinator Transplant 04/20/23 Saira Tirado, billet cutter Failure Coordinator Cardiology 02/27/24
--- OUTSIDE RECORDS SUMMARY | 2024-11-29 14:05 | XMS_ITS | Clinical Summary ---
Author Organization [facility] Address [address] [place] [address] Phone Care Team Providers Care Suppression Crew Leader Name Role Phone Jillian Campos Cecy DELANEY Primary Care Provider [phone] Allergies Active Allergy Reactions Criticality Noted Date Comments Cefuroxime Axetil Nausea 01/12/2018 Medications busPIRone (BUSPAR) 15 MG Tablet Take 45 mg by mouth daily. Active SIMVASTATIN PO Take by mouth daily. Active oxybutynin (DITROPAN) 5 MG Tablet Take 5 mg by mouth 2 times daily. Active Aspirin 81 MG Tablet Take 81 mg by mouth daily. Active sertraline (ZOLOFT) 100 MG Tablet Take 200 mg by mouth daily. Active Social History Tobacco Use Types Packs/Day Years Used Date Smoking Tobacco: Every Day Cigarettes Smokeless Tobacco: Never Alcohol Use Standard Drinks/Week Comments No 0 (1 standard drink = 0.6 oz pur e alcohol) Comments No Sex and Gender Information Value Date Recorded Sex Assigned at Not on file Legal Sex Female 12:10 PM CDT Gender Identity Not on file Sexual Orientation Not on file Last Filed Vital Signs Vital Sign Reading Time Taken Comments Blood Pressure 126/65 01/12/2018 2:15 PM CDT Pulse 54 01/12/2018 2:15 PM CDT Temperature 36.4 C (97.5 F) 01/12/2018 12:24 PM CDT Respiratory Rate 20 01/12/2018 12:24 PM CDT Oxygen Saturation 98% 01/12/2018 2:15 PM CDT Inhaled Oxygen Concentration - - Weight 70.3 kg (155 lb) 01/12/2018 12:24 PM CDT Height 170.2 cm (5' 7) 01/12/2018 12:24 PM CDT Body Mass Index 24.28 01/12/2018 12:24 PM CDT Plan of Treatment Health Maintenance Due Date Last Done Comments Hepatitis C Virus (HCV) Screening 1960 TdaP Immunization 1960 Pap Smear 12/20/1980 Cervical Cancer Screening (CCS) 12/20/1989 HPV/Cotest 12/20/1989 Cologuard 12/20/2004 Colonoscopy 12/20/2004 Colorectal Cancer Screening 12/20/2004 Immunochemical Fecal Occult Blood 12/20/2004 Pneumococcal Immunization (5 0+ years) (1 of 1 - PCV) 12/20/2009 Zoster Immunization (1 of 2) 12/20/2009 Influenza Immunization (#1) 2024 SARS-COV-2 Immunization (2024- season) 2024 12/25/2020, 05/19/2020, 04/28/2020 Respiratory Syncytial Virus (RSV) Immunization (Adult) (1 - 1-dose 75+ series) 12/20/2034 Hepatitis B Immunization Aged Out No longer eligible based on patient's age to complete this topic Human Papillomavirus (HPV) Immunization Aged Out No longer eligible b ased on patient's age to complete this topic Meningococcal Immunization (ACWY) Aged Out No longer eligible b ased on patient's age to complete this topic Rotavirus Immunization Aged Out No lo nger eligible based on patient's age to complete this topic Care Teams Suppression Crew Leader Relationship Specialty Start Date End Date Jillian Campos APRN PCP - General Advanced Practice Nurse 01/12/18
--- OUTSIDE RECORDS SUMMARY | 2024-11-29 14:05 | XMS_ITS | Patient Health Record ---
Author Organization [facility] [employer] [facility] Address [address] [place] [address] Care Team Providers Care Play Writer Name Role Phone Jillian Campos APRN Primary Care Provider Gui Zhou Unavailable [phone] Allergies Allergen (clinical drug ingredient) Drug/Non Drug Allergy documented on EMR Reaction Allergy Type Onset Date Status cefdinir Cefdinir Unknown Drug Allergy Active Reason For Referral No Information Medications Medication SIG (Take, Route, Frequency, Duration) Notes Start Date End Date Status Atorvastatin Calcium 80 MG Tablet 1 tablet Orally Once a day Active lamoTRIgine 25 MG Tablet 2 tablets Orall y once a day; Duration: 30 days 11/29/2024 Active Ubrelvy 100 MG Tablet Oral; Duration: 23 Days Active Metoprolol Succinate ER 25 MG Tablet Extended Release 24 Hour TAKE 1 TABLET BY MOUTH ONCE DAILY Oral; Duration: 90 Days Active Vitamin B 12 100 MCG Lozenge as directed Orally Active Aspirin 81 81 MG Tablet Delayed Release 1 tablet Orally Once a day Active Sertraline HCl 100 MG Tablet 2 tablet Orally Once a day; Duration: 90 days 11/29/2024 Active Ramipril 2.5 MG Capsule 1 capsule Orally Once a day Active Rexulti 1 mg Tablet 1 tablet Orally Once a day; Duration: 90 days 11/29/2024 Active traZODone HCl 100 MG Tablet 0.5 to 1 tablet at bedtime Orally Once a day; Duration: 30 days As needed 11/29/2024 Active Social History Tobacco Use: Social History Observation Description Date Details (start date - stop date) Current Smoker NA - NA Sex Assigned At : Social History Observation Description Sex Assigned At Female Social History Miscellaneous: Social Info Question Answer Notes Advance Care Planning Are you your own decision-maker Yes Do you have Power of Gang P[employer] for Health or [facility]? No Advance Directive FULL CODE Social History Social Info Question Answer Notes Household: Marital Status: Number of Adults in household: 1 Number of Children in Household: 0 Level of Education: Finished College Drug/Alcohol: Social Info Question Answer Notes AUDIT-C [...] many cigarettes a day do you smoke? 11-20 How soon after you wake up do you smoke your first cigarette? Within 5 minutes Tobacco use: Current smoker Problems Problem Type SNOMED Code ICD Code Onset Dates Problem Status W/U Status Risk Notes Problem Mild recurrent major depression (15756054) Major depressive disorder, recurrent, mild (F33.0) Active confirmed Problem Insomnia disorder related to another mental disorder (96787681) Insomnia due to other mental disorder (F51.05) Active confirmed Problem Abdominal aortic aneurysm without rupture (disorder) (05904159) Abdominal aortic aneurysm, without rupture, unspecified (I71.40) Active confirmed Problem Bipolar 2 disorder (82641815) Bipolar 2 disorder (F31.81) Active confirmed Problem Generalized anxiety disorder (63445667) PHILLIP (generalized anxiety disorder) (F41.1) Active confirmed Problem Tobacco user (078753095) Nicotine dependence with current use (F17.200) Active confirmed Vital Signs Heart Rate 55 /min 11/29/2024 Height-cm 172.69 cm 11/29/2024 Blood pressure diastolic 65 mm Hg 11/29/2024 Weight-kg 73.94 kg 11/29/2024 Height 67.99 in 11/29/2024 Blood pressure systolic 109 mm Hg 11/29/2024 Weight 163 lbs 11/29/2024 BMI 24.79 kg/m2 11/29/2024 Encounters Encounter [facility] Date [facility] [address] [place] [address] 12/01/2023 Gui Steen PHILLIP (generalized anxiety disorder) F41.1 ; Bipolar 2 disorder F31.81 and Nicotine dependence with current use F17.200 [facility] [employer] [address] [address] 12/30/2023 Gui Steen PHILLIP (generalized anxiety disorder) F41.1 ; Bipolar 2 disorder F31.81 and Nicotine dependence with current use F17.200 [facility] [employer] [address] [address] 02/13/2024 Gui Steen PHILLIP (generalized anxiety disorder) F41.1 ; Bipolar 2 disorder F31.81 and Nicotine dependence with current use F17.200 [facility] [employer] [address] [address] 05/14/2024 Gui Steen PHILLIP (generalized anxiety disorder) F41.1 ; Bipolar 2 disorder F31.81 ; Nicotine dependence with current use F17.200 and Abdominal aortic aneurysm, without rupture, unspecified I71.40 [facility] [address] [address] 06/20/2024 Gui Steen Nicotine use Z72.0 ; Encounter for screening for depression Z13.31 ; Encounter for screening for cardiovascular disorders Z13.6 ; PHILLIP (generalized anxiety disorder) F41.1 ; Bipolar 2 disorder F31.81 ; Nicotine dependence with current use F17.200 and Abdominal aortic aneurysm, without rupture, unspecified I71.40 [facility] [address] [address] 07/12/2024 Gui Steen Encounter for screen ing for depression Z13.31 ; Encounter for screening for cardiovascular disorders Z13.6 ; Nicotine use Z72.0 ; PHILLIP (generalized anxiety disorder) F41.1 ; Bipolar 2 disorder F31.81 ; Nicotine dependence with current use F17.200 and Abdominal aortic aneurysm, without rupture, unspecified I71.40 [facility] [address] [address] 08/15/2024 Gui Steen Encounter for screen ing for depression Z13.31 ; Nicotine use Z72.0 ; Encounter for screening for cardiovascular disorders Z13.6 ; PHILLIP (generalized anxiety disorder) F41.1 ; Bipolar 2 disorder F31.81 ; Nicotine dependence with current use F17.200 and Abdominal aortic aneurysm, without rupture, unspecified I71.40 [facility] [place] [address] [place] [address] 09/13/2024 Gui Steen Encounter for screen ing for cardiovascular disorders Z13.6 ; Encounter for screening for depression Z13.31 ; Nicotine use Z72.0 ; PHILLIP (generalized anxiety disorder) F41.1 ; Bipolar 2 disorder F31.81 ; Nicotine dependence with current use F17.200 and Insomnia due to other mental disorder F51.05 [facility] [address] [place] [address] 10/11/2024 Gui Steen Nicotine use Z72.0 ; Bipolar 2 disorder F31.81 ; PHILLIP (generalized anxiety disorder) F41.1 ; Nicotine dependence with current use F17.200 and Insomnia due to other mental disorder F51.05 [facility] [place] [address] [facility] [address] [place] [address] 10/30/2024 Gui Steen Bipolar 2 disorder F31.81 ; Nicotine use Z72.0 ; PHILLIP (generalized anxiety disorder) F41.1 ; Nicotine dependence with current use F17.200 and Insomnia due to other mental disorder F51.05 [facility] [place] [address] [place] [address] 11/14/2024 Gui Steen Bipolar 2 disorder F31.81 ; Nicotine use Z72.0 ; PHILLIP (generalized anxiety disorder) F41.1 and Insomnia due to other mental disorder F51.05 [facility] [place] [address] [place] [address] 11/29/2024 Gui Steen Bipolar 2 disorder F31.81 ; Nicotine use Z72.0 ; PHILLIP (generalized anxiety disorder) F41.1 and Insomnia due to other mental disorder F51.05 [facility] [address] [place] [address] 10/15/2024 Gui Steen [facility] [place] [address] [place] [address] 10/17/2024 Gui Gordona [facility] [place] [address] [place] [address] 11/06/2024 Gui Steen [facility] [address] [place] [address] 10/15/2024 Gui Steen [facility] [address] [place] [address] 11/06/2024 Gui Steen Assessments Encounter Date Diagnosis (ICD Code) Assessment Notes Treatment Notes Treatment Clinical Notes Section Notes 12/01/2023 Bipolar 2 disorder (ICD-10 - F31.81) bupropion xl 300mg daily, Learning About Mood Disorders material was published, Learning About Mood Disorders material was published 1. Bipolar Disorder: - Patient reports significant improvement in mood and irritability since starting Lamotrigine, currently at 50 mg daily. - Patient's daughter, a nurse, also noticed improvements in concentration and organization. Plan: - Continue Lamotrigine 50 mg daily. - Follow up in 1 month to monitor progress and adjust medication if needed. 2. Anxiety: - Patient is currently taking Buspar 30 mg twice a day, Buproprion xl 300mg daily and Sertraline 200mg daily - No reported issues or concerns with anxiety management at this time. Plan: - Continue Buspar 30 mg twice a day. - Reassess anxiety symptoms at the next follow-up appointment. 3. ADHD: - Patient reports improved concentration and organization since starting Lamotrigine. Plan: - Hold off on ADHD testing for now, as patient's symptoms have improved. - Reevaluate the need for ADHD testing at the next follow-up appointment. Follow-up: - Schedule a follow-up appointment in 1 month to monitor progress and adjust medications if needed. - If the patient continues to do well at the 1-month follow-up, schedule subsequent appointments every 3 months. 12/01/2023 PHILLIP (generalized anxiety disorder) (ICD-10 - F41.1) buspirone 30mg bid, sertraline 200mg daily 1. Bipolar Disorder: - Patient reports significant improvement in mood and irritability since starting Lamotrigine, currently at 50 mg daily. - Patient's daughter, a nurse, also noticed improvements in concentration and organization. Plan: - Continue Lamotrigine 50 mg daily. - Follow up in 1 month to monitor progress and adjust medication if needed. 2. Anxiety: - Patient is currently taking Buspar 30 mg twice a day, Buproprion xl 300mg daily and Sertraline 200mg daily - No reported issues or concerns with anxiety management at this time. Plan: - Continue Buspar 30 mg twice a day. - Reassess anxiety symptoms at the next follow-up appointment. 3. ADHD: - Patient reports improved concentration and organization since starting Lamotrigine. Plan: - Hold off on ADHD testing for now, as patient's symptoms have improved. - Reevaluate the need for ADHD testing at the next follow-up appointment. Follow-up: - Schedule a follow-up appointment in 1 month to monitor progress and adjust medications if needed. - If the patient continues to do well at the 1-month follow-up, schedule subsequent appointments every 3 months. 12/30/2023 PHILLIP (generalized anxiety disorder) (ICD-10 - F41.1) buspirone 30mg bid, sertraline 150mg daily 1. Major Depressive Disorder: - Patient reports significant symptoms of depression, including poor motivation, withdrawal, and difficulty focusing. These symptoms have resurfaced after years of being well-controlle d. - Possible triggers include the patient's recent birthday, which is associated with the loss of loved ones, and the upcoming anniversary of her 's . Plan: - Decrease sertraline to 150 mg daily (from 200 mg). - Monitor patient's mood and depressive symptoms closely. - Encourage the patient to engage in self-care activities, such as spending time outdoors and seeking sunlight exposure. - Schedule a follow-up appointment in one month to reassess the patient's mood and response to medication adjustments. 2. Bipolar Disorder: - Patient reports mood fluctuations, with a recent increase in mood followed by stabilization. Plan: - Increase lamotrigine to 100 mg daily (from 50 mg). - Continue buspirone 30 mg twice a day and bupropion XL 300 mg daily. - Monitor patient's mood stability and any potential side effects from the medication adjustments. - Schedule a follow-up appointment in one month to reassess the patient's mood stability and response to medication adjustments. 3. Adjustment to work-related stress and potential intermediate: - Patient reports feeling overwhelmed at work and is considering part-time status or intermediate in the near future. Plan: - Encourage the patient to discuss her concerns and potential plans with her puttying and calking supervisor and colleagues. - Suggest the patient explore options for health insurance coverage if she decides to transition to part-time work or retire. - Encourage the patient to engage in self-care activities and seek support from friends and family during this period of adjustment. 4. Memory and cognitive concerns: - Patient reports difficulty with memory and cognitive tasks, such as remembering where she placed her phone and struggling with technology. Plan: - Reassure the patient that basic tasks are achievable with practice and the right mindset. - Encourage the patient to seek assistance from friends or family members when feeling frustrated with technology. - Suggest the patient develop strategies for remembering passwords and other important information, such as writing them down or storing them in a secure location. - Monitor the patient's cognitive function during follow-up appointments and consider further evaluation if concerns persist. 02/13/2024 PHILLIP (generalized anxiety disorder) (ICD-10 - F41.1) buspirone 30mg bid, sertraline 150mg daily 1. Bipolar Disorder: - Patient reports feeling back to baseline after increasing lamotrigine to 100 mg and decreasing sertraline to 150 mg. - Mood fluctuations, poor motivation, and withdrawal have improved. Plan: - Continue lamotrigine 100 mg daily and sertraline 150 mg daily. - Refill medications with a 90-day supply. 2. Anxiety: - Patient reports anxiety is back to baseline. Plan: - Continue Buspar 30 mg twice a day. 3. Depression: - Patient reports depression is back to baseline. Plan: - Continue bupropion 300 mg daily. 4. Sleep: - Patient reports sleeping well. Plan: - Continue using melatonin 5 mg as needed for sleep. 5. Stress management and problem-solvin g skills: - Patient has demonstrated improved problem-solvin g skills and stress management by seeking help and taking one thing at a time. Plan: - Encourage continued development of problem-solvin g skills and stress management techniques. Follow-up: - Schedule a follow-up appointment in 3 months to monitor progress and medication effectiveness. 05/14/2024 Bipolar 2 disorder (ICD-10 - F31.81) bupropion xl 300mg daily, Learning About Mood Disorders material was published, Learning About Mood Disorders material was published 05/14/2024 PHILLIP (generalized anxiety disorder) (ICD-10 - F41.1) buspirone 30mg bid, sertraline 150mg daily 06/20/2024 Nicotine use (ICD-10 - Z72.0) 07/12/2024 Encounter for screening for depression (ICD-10 - Z13.31) differential dx- ADHD 08/15/2024 Encounter for screening for depression (ICD-10 - Z13.31) differential dx- ADHD 09/13/2024 Encounter for screening for cardiovascular disorders (ICD-10 - Z13.6) differential dx- ADHD 10/11/2024 Bipolar 2 disorder (ICD-10 - F31.81) differential dx- ADHD 10/11/2024 Nicotine use (ICD-10 - Z72.0) differential dx- ADHD 10/30/2024 Bipolar 2 disorder (ICD-10 - F31.81) differential dx- ADHD 11/14/2024 Bipolar 2 disorder (ICD-10 - F31.81) differential dx- ADHD 11/29/2024 Bipolar 2 disorder (ICD-10 - F31.81) differential dx- ADHD 11/14/2024 Nicotine use (ICD-10 - Z72.0) differential dx- ADHD 10/30/2024 Nicotine use (ICD-10 - Z72.0) differential dx- ADHD 11/29/2024 Nicotine use (ICD-10 - Z72.0) differential dx- ADHD 10/11/2024 PHILLIP (generalized anxiety disorder) (ICD-10 - F41.1) buspirone 30mg bid, sertraline 150mg daily differential dx- ADHD 09/13/2024 Nicotine use (ICD-10 - Z72.0) differential dx- ADHD 09/13/2024 Encounter for screening for depression (ICD-10 - Z13.31) differential dx- ADHD 08/15/2024 Nicotine use (ICD-10 - Z72.0) differential dx- ADHD 07/12/2024 Encounter for screening for cardiovascular disorders (ICD-10 - Z13.6) differential dx- ADHD 06/20/2024 Encounter for screening for depression (ICD-10 - Z13.31) 05/14/2024 Nicotine dependence with current use (ICD-10 - F17.200) 02/13/2024 Bipolar 2 disorder (ICD-10 - F31.81) bupropion xl 300mg daily, Learning About Mood Disorders material was published, Learning About Mood Disorders material was published 1. Bipolar Disorder: - Patient reports feeling back to baseline after increasing lamotrigine to 100 mg and decreasing sertraline to 150 mg. - Mood fluctuations, poor motivation, and withdrawal have improved. Plan: - Continue lamotrigine 100 mg daily and sertraline 150 mg daily. - Refill medications with a 90-day supply. 2. Anxiety: - Patient reports anxiety is back to baseline. Plan: - Continue Buspar 30 mg twice a day. 3. Depression: - Patient reports depression is back to baseline. Plan: - Continue bupropion 300 mg daily. 4. Sleep: - Patient reports sleeping well. Plan: - Continue using melatonin 5 mg as needed for sleep. 5. Stress management and problem-solvin g skills: - Patient has demonstrated improved problem-solvin g skills and stress management by seeking help and taking one thing at a time. Plan: - Encourage continued development of problem-solvin g skills and stress management techniques. Follow-up: - Schedule a follow-up appointment in 3 months to monitor progress and medication effectiveness. 12/01/2023 Nicotine dependence with current use (ICD-10 - F17.200) Learning About Benefits of Quitting Smoking material was published 1. Bipolar Disorder: - Patient reports significant improvement in mood and irritability since starting Lamotrigine, currently at 50 mg daily. - Patient's daughter, a nurse, also noticed improvements in concentration and organization. Plan: - Continue Lamotrigine 50 mg daily. - Follow up in 1 month to monitor progress and adjust medication if needed. 2. Anxiety: - Patient is currently taking Buspar 30 mg twice a day, Buproprion xl 300mg daily and Sertraline 200mg daily - No reported issues or concerns with anxiety management at this time. Plan: - Continue Buspar 30 mg twice a day. - Reassess anxiety symptoms at the next follow-up appointment. 3. ADHD: - Patient reports improved concentration and organization since starting Lamotrigine. Plan: - Hold off on ADHD testing for now, as patient's symptoms have improved. - Reevaluate the need for ADHD testing at the next follow-up appointment. Follow-up: - Schedule a follow-up appointment in 1 month to monitor progress and adjust medications if needed. - If the patient continues to do well at the 1-month follow-up, schedule subsequent appointments every 3 months. 12/30/2023 Bipolar 2 disorder (ICD-10 - F31.81) bupropion xl 300mg daily, Learning About Mood Disorders material was published, Learning About Mood Disorders material was published 1. Major Depressive Disorder: - Patient reports significant symptoms of depression, including poor motivation, withdrawal, and difficulty focusing. These symptoms have resurfaced after years of being well-controlle d. - Possible triggers include the patient's recent birthday, which is associated with the loss of loved ones, and the upcoming anniversary of her 's . Plan: - Decrease sertraline to 150 mg daily (from 200 mg). - Monitor patient's mood and depressive symptoms closely. - Encourage the patient to engage in self-care activities, such as spending time outdoors and seeking sunlight exposure. - Schedule a follow-up appointment in one month to reassess the patient's mood and response to medication adjustments. 2. Bipolar Disorder: - Patient reports mood fluctuations, with a recent increase in mood followed by stabilization. Plan: - Increase lamotrigine to 100 mg daily (from 50 mg). - Continue buspirone 30 mg twice a day and bupropion XL 300 mg daily. - Monitor patient's mood stability and any potential side effects from the medication adjustments. - Schedule a follow-up appointment in one month to reassess the patient's mood stability and response to medication adjustments. 3. Adjustment to work-related stress and potential intermediate: - Patient reports feeling overwhelmed at work and is considering part-time status or intermediate in the near future. Plan: - Encourage the patient to discuss her concerns and potential plans with her puttying and calking supervisor and colleagues. - Suggest the patient explore options for health insurance coverage if she decides to transition to part-time work or retire. - Encourage the patient to engage in self-care activities and seek support from friends and family during this period of adjustment. 4. Memory and cognitive concerns: - Patient reports difficulty with memory and cognitive tasks, such as remembering where she placed her phone and struggling with technology. Plan: - Reassure the patient that basic tasks are achievable with practice and the right mindset. - Encourage the patient to seek assistance from friends or family members when feeling frustrated with technology. - Suggest the patient develop strategies for remembering passwords and other important information, such as writing them down or storing them in a secure location. - Monitor the patient's cognitive function during follow-up appointments and consider further evaluation if concerns persist. 12/30/2023 Nicotine dependence with current use (ICD-10 - F17.200) 1. Major Depressive Disorder: - Patient reports significant symptoms of depression, including poor motivation, withdrawal, and difficulty focusing. These symptoms have resurfaced after years of being well-controlle d. - Possible triggers include the patient's recent birthday, which is associated with the loss of loved ones, and the upcoming anniversary of her 's . Plan: - Decrease sertraline to 150 mg daily (from 200 mg). - Monitor patient's mood and depressive symptoms closely. - Encourage the patient to engage in self-care activities, such as spending time outdoors and seeking sunlight exposure. - Schedule a follow-up appointment in one month to reassess the patient's mood and response to medication adjustments. 2. Bipolar Disorder: - Patient reports mood fluctuations, with a recent increase in mood followed by stabilization. Plan: - Increase lamotrigine to 100 mg daily (from 50 mg). - Continue buspirone 30 mg twice a day and bupropion XL 300 mg daily. - Monitor patient's mood stability and any potential side effects from the medication adjustments. - Schedule a follow-up appointment in one month to reassess the patient's mood stability and response to medication adjustments. 3. Adjustment to work-related stress and potential intermediate: - Patient reports feeling overwhelmed at work and is considering part-time status or intermediate in the near future. Plan: - Encourage the patient to discuss her concerns and potential plans with her puttying and calking supervisor and colleagues. - Suggest the patient explore options for health insurance coverage if she decides to transition to part-time work or retire. - Encourage the patient to engage in self-care activities and seek support from friends and family during this period of adjustment. 4. Memory and cognitive concerns: - Patient reports difficulty with memory and cognitive tasks, such as remembering where she placed her phone and struggling with technology. Plan: - Reassure the patient that basic tasks are achievable with practice and the right mindset. - Encourage the patient to seek assistance from friends or family members when feeling frustrated with technology. - Suggest the patient develop strategies for remembering passwords and other important information, such as writing them down or storing them in a secure location. - Monitor the patient's cognitive function during follow-up appointments and consider further evaluation if concerns persist. 02/13/2024 Nicotine dependence with current use (ICD-10 - F17.200) 1. Bipolar Disorder: - Patient reports feeling back to baseline after increasing lamotrigine to 100 mg and decreasing sertraline to 150 mg. - Mood fluctuations, poor motivation, and withdrawal have improved. Plan: - Continue lamotrigine 100 mg daily and sertraline 150 mg daily. - Refill medications with a 90-day supply. 2. Anxiety: - Patient reports anxiety is back to baseline. Plan: - Continue Buspar 30 mg twice a day. 3. Depression: - Patient reports depression is back to baseline. Plan: - Continue bupropion 300 mg daily. 4. Sleep: - Patient reports sleeping well. Plan: - Continue using melatonin 5 mg as needed for sleep. 5. Stress management and problem-solvin g skills: - Patient has demonstrated improved problem-solvin g skills and stress management by seeking help and taking one thing at a time. Plan: - Encourage continued development of problem-solvin g skills and stress management techniques. Follow-up: - Schedule a follow-up appointment in 3 months to monitor progress and medication effectiveness. 05/14/2024 Abdominal aortic aneurysm, without rupture, unspecified (ICD-10 - I71.40) 06/20/2024 Encounter for screening for cardiovascular disorders (ICD-10 - Z13.6) 07/12/2024 Nicotine use (ICD-10 - Z72.0) differential dx- ADHD 08/15/2024 Encounter for screening for cardiovascular disorders (ICD-10 - Z13.6) differential dx- ADHD 09/13/2024 PHILLIP (generalized anxiety disorder) (ICD-10 - F41.1) buspirone 30mg bid, sertraline 150mg daily differential dx- ADHD 10/11/2024 Nicotine dependence with current use (ICD-10 - F17.200) differential dx- ADHD 10/30/2024 PHILLIP (generalized anxiety disorder) (ICD-10 - F41.1) buspirone 30mg bid, sertraline 150mg daily differential dx- ADHD 11/14/2024 PHILLIP (generalized anxiety disorder) (ICD-10 - F41.1) buspirone 30mg bid, sertraline 150mg daily differential dx- ADHD 11/29/2024 PHILLIP (generalized anxiety disorder) (ICD-10 - F41.1) buspirone 30mg bid, sertraline 150mg daily differential dx- ADHD 11/29/2024 Insomnia due to other mental disorder (ICD-10 - F51.05) differential dx- ADHD 11/14/2024 Insomnia due to other mental disorder (ICD-10 - F51.05) differential dx- ADHD 10/30/2024 Nicotine dependence with current use (ICD-10 - F17.200) differential dx- ADHD 10/11/2024 Insomnia due to other mental disorder (ICD-10 - F51.05) differential dx- ADHD 09/13/2024 Bipolar 2 disorder (ICD-10 - F31.81) bupropion xl 150mg daily, differential dx- ADHD 08/15/2024 PHILLIP (generalized anxiety disorder) (ICD-10 - F41.1) buspirone 30mg bid, sertraline 150mg daily differential dx- ADHD 07/12/2024 PHILLIP (generalized anxiety disorder) (ICD-10 - F41.1) buspirone 30mg bid, sertraline 150mg daily differential dx- ADHD 06/20/2024 PHILLIP (generalized anxiety disorder) (ICD-10 - F41.1) buspirone 30mg bid, sertraline 150mg daily 06/20/2024 Bipolar 2 disorder (ICD-10 - F31.81) bupropion xl 300mg daily, Learning About Mood Disorders material was published, Learning About Mood Disorders material was published 07/12/2024 Bipolar 2 disorder (ICD-10 - F31.81) bupropion xl 150mg daily, differential dx- ADHD 09/13/2024 Nicotine dependence with current use (ICD-10 - F17.200) differential dx- ADHD 10/30/2024 Insomnia due to other mental disorder (ICD-10 - F51.05) differential dx- ADHD 08/15/2024 Bipolar 2 disorder (ICD-10 - F31.81) bupropion xl 150mg daily, differential dx- ADHD 08/15/2024 Nicotine dependence with current use (ICD-10 - F17.200) differential dx- ADHD 09/13/2024 Insomnia due to other mental disorder (ICD-10 - F51.05) differential dx- ADHD 07/12/2024 Nicotine dependence with current use (ICD-10 - F17.200) differential dx- ADHD 06/20/2024 Nicotine dependence with current use (ICD-10 - F17.200) 06/20/2024 Abdominal aortic aneurysm, without rupture, unspecified (ICD-10 - I71.40) 07/12/2024 Abdominal aortic aneurysm, without rupture, unspecified (ICD-10 - I71.40) differential dx- ADHD 08/15/2024 Abdominal aortic aneurysm, without rupture, unspecified (ICD-10 - I71.40) differential dx- ADHD 05/14/2024 Other 1. Major Depressive Disorder: - Patient reports feeling overwhelmed, frustrated, and tired. They have been experiencing irritability and a lack of improvement in mood despite increasing sertraline dosage. Plan: - Increase lamotrigine dosage to 100 mg in the morning and 50 mg in the evening. - Monitor patient's mood and irritability levels. - Reevaluate the effectiveness of the medication adjustment in 4-6 weeks. 2. Anxiety: - Patient is currently taking buspirone for anxiety. Plan: - Refill buspirone prescription. - Encourage the patient to continue attending therapy sessions with Samantha. - Monitor anxiety levels and adjust treatment as needed. 3. ADHD: - Patient mentioned Vyvanse as a potential treatment option but is concerned about the impact on their aneurysm. Plan: - Recommend discussing the use of stimulants with their foundry helper before considering any changes to their ADHD treatment plan. 4. Bipolar Disorder: - Patient reports that lamotrigine has been effective in managing hypomania but is now leaning more towards the depressive side. Plan: - Increase lamotrigine dosage as mentioned above. - Monitor patient's mood stability and adjust treatment as needed. 5. Stressors: - Patient is dealing with multiple stressors, including work, financial, legal, and family issues. Plan: - Encourage the patient to continue therapy sessions with Samantha to address these stressors. - Recommend exploring stress management techniques, such as mindfulness and relaxation exercises. 6. Seasonal Affective Disorder: - Patient reports feeling better with sun exposure and warmer weather. Plan: - Encourage the patient to spend time outdoors when possible. - Consider discussing light therapy with their therapist. 7. Medication management: - Patient is currently taking bupropion, buspirone, atorvastatin, and lamotrigine. Plan: - Refill bupropion and buspirone prescriptions. - Monitor patient's response to the increased lamotrigine dosage. - Ensure patient continues taking atorvastatin at bedtime as prescribed. 06/20/2024 Farrah Fan, a patient with a history of aneurysm, presents with improved mood after recent medication adjustment but continues to struggle with cognition and motivation issues. Mood disorder with seasonal pattern Assessment: Patient reports significant improvement in mood, particularly after exposure to sunlight during a warm weekend in May. This suggests a seasonal component to her mood disorder. She expressed concern about the severity of her recent depressive episode, stating she hasn't felt this bad in 30 years and was close to considering hospitalization. The improvement with sunlight exposure indicates a potential benefit from light therapy. Plan: - Consider bright light therapy: 10,000 lux light, starting with a few minutes in the morning and gradually increasing to up to an hour daily - Continue current medication regimen with adjustments as noted below - Maintain ongoing therapy sessions Cognitive difficulties and lack of motivation Assessment: Patient reports ongoing issues with cognition, concentration, and motivation. These symptoms have been persistent despite medication adjustments. The bupropion was previously increased to 300 mg to address cognitive concerns, but improvement has been limited. Plan: - Decrease bupropion (Wellbutrin) from 300 mg to 150 mg daily - Monitor for changes in mood and cognition over the next month - If no significant changes observed, consider further reduction or discontinuation of bupropion - Reassess cognitive function and motivation at follow-up Medication management Assessment: Patient is currently on lamotrigine, which was recently increased to include a half tablet at night. She is also taking bupropion 300 mg daily. The patient's foundry helper has expressed concern about the bupropion dosage and suggested considering its reduction or discontinuation. Stimulant medications (e.g., Vyvanse) have been ruled out due to the patient's history of aneurysm. Plan: - Continue lamotrigine at current dose (half tablet at night) - Decrease bupropion from 300 mg to 150 mg daily - Prescribe bupropion 150 mg tablets - Educate patient on potential effects of medication changes and instruct to report any significant mood or cognitive changes - Follow up in one month to assess response to medication adjustment the note is transcribed using speech recognition software. It is a reflection of a visit with the patient. It might have some inaccuracy, including medication names and transcribing errors, though efforts have been made to correct them. 07/12/2024 Farrah Fan, a patient with a history of bipolar disorder, presents with worsening cognitive issues, fatigue, and work-related stress. Cognitive Impairment Assessment: Patient reports worsening cognitive issues, including confusion with time management and difficulty handling work responsibilities . These symptoms have been ongoing for approximately one year. An MRI has ruled out tumors. The patient is scheduled for further cognitive testing at [facility] clinic. The cognitive decline may be related to medication side effects, particularly from lamotrigine, as noted by the patient's therapist. Differential diagnoses include medication side effects, stress-related cognitive impairment, and early-onset dementia, though the latter is considered less likely by the primary care provider. Plan: - Decrease lamotrigine dosage to 50 mg in the morning and 50 mg at night to assess impact on cognition - Follow up with [facility] memory clinic for comprehensive cognitive testing - Monitor cognitive function and reassess in one month Bipolar Disorder Assessment: Patient has been stable on lamotrigine, reporting more subtle mood swings since starting the medication. Currently, the patient describes her mood as flat without significant depressive symptoms. The long-term use of Zoloft (200 mg for 30 years) may contribute to emotional flattening. The recent increase in Wellbutrin has not resulted in noticeable changes. Plan: - Continue Zoloft 200 mg daily - Continue Wellbutrin at current dose; reassess efficacy in one month - Decrease lamotrigine as noted above; monitor for any changes in mood stability - Continue BuSpar at current dose Fatigue and Work-related Stress Assessment: Patient reports significant fatigue, affecting work performance and leading to a reduction in workload. She is currently working 6 days a week, often to catch up on missed work, which is likely contributing to her fatigue and stress. The patient has applied for FMLA and ADA accommodations to manage her work situation. Plan: - Support FMLA application for intermittent leave (12 weeks to protect benefits until December) - Encourage use of FMLA leave on days when patient feels unable to work effectively - Recommend maintaining current exercise regimen of 7,000-9,000 steps per day with intermediate upper body exercise - Follow up in one month to reassess work situation and stress levels Sleep Disturbance Assessment: Patient previously reported sleep difficulties. Magnesium supplementation was recommended by the nurse practitioner due to hangover effects from traditional sleep medications. The patient believes the magnesium might be helping with sleep. Plan: - Continue magnesium supplementation for sleep support - Monitor sleep quality and reassess efficacy of magnesium at next visit the note is transcribed using speech recognition software. It is a reflection of a visit with the patient. It might have some inaccuracy, including medication names and transcribing errors, though efforts have been made to correct them. differential dx- ADHD 08/15/2024 Other Zelda Lopez, a patient with a history of cognitive issues and medication management, presents with concerns about running out of Lamictal and ongoing cognitive difficulties, particularly in work settings. Cognitive Impairment Assessment: Patient reports ongoing cognitive difficulties, primarily in work-related tasks. She notes leaving work tasks undone and struggling with awareness of incomplete assignments. Cognitive issues appear to be context-dependen t, with more pronounced difficulties in the work environment. Patient has implemented coping strategies, including writing things down before computer entry and seeking a quieter work environment. Friends have not noticed significant changes in her cognitive function outside of work. Patient is scheduled for evaluation at [facility] in September for further assessment. Plan: - Continue current coping strategies (e.g., writing things down, working in quieter environment) - Advised patient to observe if cognitive problems occur only in work settings or outside work as well - Maintain scheduled appointment at [facility] in September for comprehensive cognitive evaluation - Follow up in one month to reassess cognitive function Medication Management - Lamotrigine Assessment: Patient reports running out of Lamictal (lamotrigine) for about a week due to refill issues and personal oversight. Current dose was 50 mg in the morning and 50 mg in the evening. Patient is unable to discern any changes in her condition since discontinuing the medication. Plan: - Discontinue lamotrigine - Monitor for any changes in cognition or overall condition off lamotrigine - Reassess the need for lamotrigine at follow-up appointment Occupational Stress Assessment: Patient expresses work-related stress and fatigue. She has been utilizing strategies to manage work responsibilities , including delegating computer-related tasks to her daughter. Patient is planning to retire on December 20. Plan: - Encourage use of FMLA if needed for work-related stress management - Continue current stress management strategies - Follow up in one month to reassess occupational functioning and stress levels the note is transcribed using speech recognition software. It is a reflection of a visit with the patient. It might have some inaccuracy, including medication names and transcribing errors, though efforts have been made to correct them. differential dx- ADHD 09/13/2024 Other Zelda Lopez, a patient approaching 64 years old, presents with concerns about memory issues, sleep disturbances, and work-related stress. Insomnia Assessment: Patient reports difficulty falling asleep, with sleep onset often delayed until 2:30 AM. This has been ongoing for a while and is impacting her work performance, causing irritability and fatigue. The patient expresses interest in trying trazodone for sleep, having heard about its use through work gossip. Plan: - Initiate trazodone 50 mg tablet - Start with 25 mg PO at bedtime (half tablet) - Patient informed about dosage and administration - Follow up in one month to assess efficacy and tolerability Mood Disorder Assessment: Patient reports past winter experience of significant depressive symptoms, including hypersomnia. Currently, patient describes feeling overwhelmed and irritable, particularly at work. Patient is on Lamictal, which she feels is not effective. Wellbutrin dosage has been reduced from 300 mg to 150 mg at the request of her foundry helper. Plan: - Discontinue Wellbutrin 150 mg - Continue Lamictal - Monitor mood symptoms and reassess treatment efficacy at follow-up Cognitive Concerns Assessment: Patient expresses concerns about memory issues, particularly in relation to retaining information. An upcoming neurology appointment is scheduled for further evaluation. Previous MRI results showed decreased corley or white matter, and patient mentions a diagnosis related to hardening of the arteries (possibly referring to atherosclerosis) . Plan: - Await results from upcoming neurology appointment - Review neurology findings at next visit the note is transcribed using speech recognition software. It is a reflection of a visit with the patient. It might have some inaccuracy, including medication names and transcribing errors, though efforts have been made to correct them. differential dx- ADHD 10/11/2024 Other Zelda Lopez, a patient with a history of psychiatric issues, presents with worsening mental health symptoms, including irritability, violent thoughts, and persistent headaches since September 272024. Exacerbation of Psychiatric Symptoms Assessment: Patient reports a significant decline in mental health, characterized by irritability, violent ideation, and inability to work since September 272024. She describes having a meltdown and experiencing thoughts of choking a coworker. This exacerbation appears to have coincided with the discontinuation of lamotrigine, suggesting a possible correlation. Patient denies current suicidal ideation but notes similarities to a previous episode 30 years ago following a family tragedy. Recent MMSE score was 27/30, indicating normal cognitive function. Blood work revealed low vitamin B12 levels. Plan: - Initiate Rexulti 0.5 mg PO daily - Provided samples - Discussed potential benefits for depression and anxiety - Patient expressed concerns about side effects - Continue Trazodone - Recommend wzxy-eca-vktdwlk vitamin B12 supplements - Follow-up appointment in 3-4 weeks Persistent Headaches Assessment: Patient reports daily headaches since the onset of psychiatric symptoms exacerbation on September 272024. She has been relying on iqoo-ybv-iyteqqy pain medication, which is causing gastrointestinal side effects. Patient uses ice packs for symptom relief, noting they also help with anxiety. Neurological evaluation is in progress, with upcoming sleep study and PET scan to rule out Alzheimer's disease. Plan: - Upcoming appointment with primary care provider next week for headache evaluation - Pending sleep study and PET scan of the brain Occupational Functioning Assessment: Patient has been unable to work since September 272024, due to psychiatric symptoms. She expresses a desire to return to work with reduced responsibilities , proposing to work mornings in one building and see 5 patients per day. Plan: - Discuss gradual return to work plan with employer - Monitor ability to resume work duties during treatment the note is transcribed using speech recognition software. It is a reflection of a visit with the patient. It might have some inaccuracy, including medication names and transcribing errors, though efforts have been made to correct them. differential dx- ADHD 10/30/2024 Other Zelda Lopez presents with recent exacerbation of mood symptoms including agitation, insomnia, and poor appetite, now improving with medication adjustments. Bipolar Disorder Assessment: Patient reports recent exacerbation of symptoms including severe insomnia (sleeping only 3-4 hours per night), agitation described as extreme restlessness, and poor appetite. Symptoms have improved since increasing trazodone dosage to 200 mg nightly, with sleep duration now 7 hours. Mood instability persists, precluding return to work at this time. Rexulti has been helpful in managing depression and anxiety symptoms. Plan: - Increase Rexulti to 1 mg daily - Provide samples of 1 mg tablets - Alternative: Take two 0.5 mg tablets if available at home - Continue trazodone 100 mg, 2 tablets (200 mg total) PO at bedtime - Defer return to work until early November pending medication adjustment and mood stabilization - Follow-up appointment in 2 weeks Insomnia Assessment: Patient reports significant improvement in sleep with increased trazodone dosage. Now sleeping 7 hours per night consistently since increasing to 200 mg nightly. Plan: - Continue trazodone 100 mg, 2 tablets (200 mg total) PO at bedtime the note is transcribed using speech recognition software. It is a reflection of a visit with the patient. It might have some inaccuracy, including medication names and transcribing errors, though efforts have been made to correct them. differential dx- ADHD 11/14/2024 Other Zelda Lopez, female patient with chronic PTSD, presents with agitation, restlessness, and cognitive concerns. Chronic Post-Traumatic Stress Disorder (PTSD) Assessment: Patient reports long-standing PTSD related to her utkdzo-qg-iha's suicide 32 years ago and issues with her father. She is currently receiving telehealth therapy with Samantha Loco at [facility], but may lose access due to changing to Medicare. The patient's PTSD symptoms appear to be exacerbating her current presentation of agitation and restlessness. Plan: - Continue telehealth therapy for PTSD management - Follow up on Medicare coverage for current therapist Agitation and Restlessness Assessment: Patient reports significant agitation, restlessness, and difficulty sitting still. These symptoms are interfering with her ability to complete tasks and may be impacting her readiness to return to work. The etiology of these symptoms is unclear, but may be related to medication side effects, particularly the recent increase in Rexulti, or possibly due to serotonin syndrome given the patient's current medication regimen. Differential diagnoses include anxiety disorder and possible ADHD. Plan: - Taper and discontinue Buspar: - 30 mg daily for 1 week - 15 mg daily for 1 week - Then stop - Restart lamotrigine 25 mg once daily for 2 weeks - Follow up in 2 weeks to reassess symptoms and medication efficacy Cognitive Concerns Assessment: Patient expresses worry about cognitive function, particularly short-term memory issues. Recent PET scan showed no biomarkers for Alzheimer's disease. Mood disorders have been suggested as a potential cause of cognitive interference. Patient denies more severe cognitive symptoms such as forgetting how to drive or perform familiar tasks. Plan: - Continue monitoring cognitive symptoms - Address underlying mood and anxiety symptoms to potentially improve cognition Medication Management Assessment: Patient is on multiple psychotropic medications, including Rexulti (recently increased), Buspar, lamotrigine (previously discontinued), and terazosin for sleep. There are concerns about potential overmedication and serotonin syndrome contributing to agitation and restlessness. Plan: - Taper and discontinue Buspar as outlined above - Restart lamotrigine as outlined above - Continue terazosin for sleep - Rexulti Medical Follow-up Assessment: Patient has several upcoming medical appointments for various health concerns, including an abdominal scan for an aortic aneurysm, cardiology follow-up, and a mammogram. Plan: - Abdominal scan for aortic aneurysm as scheduled - Cardiology follow-up as scheduled - Mammogram on the as scheduled the note is transcribed using speech recognition software. It is a reflection of a visit with the patient. It might have some inaccuracy, including medication names and transcribing errors, though efforts have been made to correct them. differential dx- ADHD 11/29/2024 Other She would like to return to work mid December, 20 hours a week. 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 Zelda Lopez, a patient with a history of anxiety and mood issues, presents for medication management and discussion of returning to work. Anxiety and Mood Disorder Assessment: Patient reports having more better days than bad days on current medication regimen. 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 Patient is currently on Rexulti 1 [...] them. differential dx- ADHD Plan Of Treatment Pending Test Test Name Order Date ADHD Testing 10/31/2023 Next Appt Details Provider Name:Gui larios, 12/13/2024 09:45:00 AM, [address], [address], [place], [id number], Insurance Providers Payer Name Payer Address Payer Phone Subscriber Number Group Number Insured Name Patient Relationship to Insured Coverage Start Date Coverage End Date [facility] [address] [place] [phone] [id number] ZELDA LOPEZ Self - patient is the insured Medical (General) History Medical History History ICD Code Problems: Severe recurrent major depress ion without psychotic features , Past Psychiatric History: Anxiety Disord er,PTSD,Major Depressive Episode undefined Imported from [facility]: e patient had three encounters with healthcare providers between May 22 and May 23, 2024. On May 22, the patient visited the lab at an unspecified location for issues related to coronary arteriosclerosis and essential hypertension. On the same day, the patient had an office visit with Dr. Bk Pinto at [facility]. During this visit, the patient was diagnosed with an abdominal aortic aneurysm (AAA) without rupture, unspecified part, in addition to the previously mentioned conditions. The following day, the patient had a telephone consultation with Fanta Arango RN at [facility]. No specific problems were reported during this call. undefined Imported from [facility]: Te st Name: Comprehensive metabolic panel Date Performed: 2024-05-22 [...] office visit with Dr. Bk Pinto at [facility], where issues such as aortic aneurysm, coronary arteriosclerosis, essential hypertension, mitral valve prolapse, and hyperlipidemia were noted. A hospital encounter occurred on 02/09/2024 with a focus on the aortic aneurysm. A telephone consultation with Fanta Arango RN at [facility], took place on 02/13/2024. On 05/22/2024, the patient visited Dr. Bk Pinto again, discussing abdominal aortic aneurysm, coronary arteriosclerosis, and essential hypertension, followed by lab tests. The next day, 05/23/2024, a telephone call with Fanta Arango RN was recorded. A lab requisition was made by Dr. Nieves Nesbitt at [facility] on 07/17/2024. On 08/24/2024, a telephone consultation with Dr. Gaetano Weaver occurred, followed by an office visit on 10/03/2024, where mild dementia and cognitive symptoms were discussed. A hospital encounter was noted on 10/05/2024. Another telephone consultation with Georgina Richardson at [facility] took place on 10/09/2024.
== END 2024-11-29 12:18 | disposition home or self-care (01) ==
PROVIDERS: PCP Nurse Practitioner Adult Health; Visit Provider Nurse Practitioner Adult Health
DX: Z12.31 Encounter for screening mammogram for malignant neoplasm of breast (principal)
CPT/HCPCS: 77063; 77067